=== PATIENT | female | born 1985 | race Asian ===

== ENCOUNTER 2019-05-07 09:34 | Emergency (ER) | payer BC ==
[~2019-05-07] VITALS: Ht 167.6 cm; Wt 74.8 kg
--- NOTE | 2019-05-07 09:45 | NUR ---
PT CAME INTO THE ED C/O HEADACHE THAT STARTED TUESDAY, NOTICED R HAND "JERKS" CONCERN ABOUT SEIZURE. PT DENIES HEADAHCE AT THE MOMENT. PT AAOX4, VSS, BREATHING EVEN AND UNLABORED ON ROOM AIR, AMBULATING. PT CONNECTED TO THE MONITOR
--- NOTE | 2019-05-07 10:06 | NUR ---
PHLEB AT BEDSIDE FOR BLOOD DRAW
[2019-05-07 10:14] LABS: BASOPHILS # (AUTO) 0.1 /CMM (0.0-0.2); BASOPHILS % (AUTO) 0.8 % (0.0-2.0); HEMATOCRIT 45 % (33-45); HEMOGLOBIN 14.8 g/dL (11.5-14.8); LYMPHOCYTES # (AUTO) 1.1 /CMM (0.8-4.8); LYMPHOCYTES % (AUTO) 15.1 % (20.0-44.0); MEAN CORPUSCULAR HGB CONC 33 g/dl (31.0-36.0); MEAN CORPUSCULAR VOLUME 92 fL (82-100); MONOCYTES # (AUTO) 0.3 /CMM (0.1-1.30); NEUTROPHILS # (AUTO) 5.5 /CMM (1.8-8.9); NEUTROPHILS % (AUTO) 77.1 % (43.0-81.0); PLATELET COUNT (AUTO) 210 /CMM (150-450); RED BLOOD CELL COUNT(AUTO) 4.94 MIL/uL (4.0-5.2); WHITE BLOOD COUNT (AUTO) 7.1 K/uL (4.3-11.0)
[2019-05-07 10:23] LABS: CALCIUM, SERUM 9.3 mg/dL (8.5-10.1); CARBON DIOXIDE 31 mmol/L (21-32); CHLORIDE 104 mmol/L (98-107); CREATININE 0.9 mg/dL (0.6-1.3); GLUCOSE 81 mg/dL (74-106); POTASSIUM 3.8 mmol/L (3.5-5.1); SODIUM SERUM 139 mmol/L (136-145); UREA NITROGEN, BLOOD 14 mg/dL (7-18)
[2019-05-07 10:33] LABS: CHOLESTEROL 175 mg/dL (<200); HDL CHOLESTEROL 78 mg/dL (40-60); LDL 79 mg/dL (0-99); TRIGLYCERIDES 46 mg/dL (30-150)
--- NOTE | 2019-05-07 10:50 | NUR ---
PT TAKEN TO CT
[2019-05-07] MEDS ORDERED: LEVO75TA7 PO (11:07)
[2019-05-07] MEDS ORDERED: LAMO150T PO (11:07)
--- NOTE | 2019-05-07 11:41 | NUR ---
Patient discharged to home in stable condition. Written and verbal after care instructions given. Patient verbalizes understanding of instruction.IV removed. Catheter intact and site benign. Pressure and 4x4 applied to site. No bleeding noted.
[2019-05-07 11:42] VITALS: BP 134/86
== END 2019-05-07 11:43 | disposition home or self-care (01) ==
LOC: ER 09:48
DX: G40.909 Epilepsy, unspecified, not intractable, without status epilepticus (principal); E03.9 Hypothyroidism, unspecified; Z79.899 Other long term (current) drug therapy
CPT/HCPCS: 36415; 70450-TC; 71045-TC; 80048-TC; 80061-TC; 82962-TC; 84484-TC; 84702-TC; 85025-TC; 85730-TC; 87081-TC